=== PATIENT | male | born 1950 | race Caucasian/White ===

== ENCOUNTER 2020-06-10 08:16 | Outpatient (CLI) | payer MEDICARE, SELFPAY | END 2020-06-10 08:17 | disposition home or self-care (01) | PROVIDERS: PCP Internal Medicine | DX: Z23 Encounter for immunization (principal) | CPT/HCPCS: 0001A; 91300 ==

== ENCOUNTER 2020-07-01 08:15 | Outpatient (CLI) | payer MEDICARE, SELFPAY | END 2020-07-01 08:16 | disposition home or self-care (01) | LOC: ANHCOVIDVC 08:15 | PROVIDERS: PCP Internal Medicine | DX: Z23 Encounter for immunization (principal) | CPT/HCPCS: 0002A; 91300 ==

== ENCOUNTER 2022-04-26 17:40 | Emergency (ER) | payer MEDICARE, SELFPAY ==
--- NOTE | 2022-04-26 17:53 | ED.URI ---
HPI - URI/Sore Throat General Chief Complaint: Upper Respiratory Infection Stated Complaint: Sinus Time Seen by Provider: 04/26/22 17:53 Source: patient Mode of arrival: ambulatory Limitations: no limitations History of Present Illness HPI Narrative: 72-year-old male presents with complaint of sinus congestion, sinus pressure, headaches, fatigue, coughing, sore throat for 1 week. Afebrile. Reports yesterday everything really hit me like a train . States that sinus congestion was terrible. His neighbor went and got him a sinus rinse that helped him some. He denies nausea vomiting diarrhea. Is taking Claritin D and Mucinex with little relief. All systems reviewed and negative except as noted above. Related Data Home Medications Medication Instructions Recorded Confirmed Claritin 04/26/22 Allergies Allergy/AdvReac Type Severity Reaction Status Date / Time chocolate flavor Allergy Unknown other Verified 09/30/21 10:47 corn Allergy Unknown other Verified 09/30/21 10:47 grass pollen Allergy Unknown other Verified 09/30/21 10:47 mold Allergy Unknown Other Verified 09/30/21 10:47 tree and shrub pollen Allergy Unknown other Verified 09/30/21 10:47 Review of Systems Review of Systems: CONSTITUTIONAL: Denies fever, chills, or sweats. EYES: Denies visual changes, redness, or discharge. ENT: Reports rhinorrhea, congestion, sinus pressure, sore throat, or otalgia. CARDIOVASCULAR: Denies chest pain, palpitations, or edema. RESPIRATORY: Reports cough. Denies dyspnea. GASTROINTESTINAL: Denies abdominal pain, nausea, vomiting, or diarrhea. GENITOURINARY: Denies dysuria or hematuria. SKIN: Denies rash or itching. MUSCULOSKELETAL: Denies back pain, joint pain, or myalgia. NEUROLOGIC: Denies headache, numbness, or weakness. PSYCHIATRIC: Denies anxiety or depression. All other systems reviewed are negative, except as documented in HPI. [facility] Past Medical History Medical History (Updated 04/26/22 @ 18:00 by Charmaine Aranda NP) Cancer Hx of chronic arthritis Prostate disease Surgical History Surgical History History of appendectomy History of removal of cyst Hx of malignant melanoma of skin Family History Family History Father Diabetes mellitus Prostatic disease Mother Dementia Sibling Diabetes mellitus Social History Social History Smoking status: Never smoker Comments At time of signature, agree with nursing past medical, surgical, social and family history. There is no relevant family history pertinent to the presenting complaint. Exam Narrative: GENERAL: This is a well-nourished, well-developed patient, in no apparent distress. HEAD: normocephalic, atraumatic. EYES: PERRL. Sclera clear/white. Vision is grossly intact. EARS: External ears normal, auditory canals clear and without drainage, fluid bilateral TMs without perforation or erythema. NOSE: External nose normal with Yellow nasal drainage, moderate congestion, frontal and maxillary sinus tenderness bilaterally. THROAT: Mucous membranes moist, Erythema with postnasal drainage. NECK: Neck supple, non-tender without lymphadenopathy, masses or thyromegaly. CARDIOVASCULAR: Regular rate and rhythm without murmurs, gallops, or rubs. RESPIRATORY: Clear to auscultation. Breath sounds equal bilaterally. No wheezes, rales, or rhonchi. SKIN: warm, Dry, intact with no suspicious lesions or rash, good texture and turgor. NEURO: awake, alert, and oriented to person, place and time. There were no obvious focal neurologic abnormalities. EXTREMITIES: No joint tenderness, effusion, or edema noted. Course Course Level of Care: Express Care Visit Vital Signs Vital signs: Vital Signs Temperature 36.6 C 04/26/22 17:59 Pulse Rate 89 04/26/22 17:
[2022-04-26 17:59] VITALS: BP 130/79; PULSE 89; RESP 20; TEMP 36.6; O2SAT 100
== END 2022-04-26 18:22 | disposition home or self-care (01) ==
PROVIDERS: Emergency Provider Nurse Practitioner Family; PCP Physician Assistant
DX: J01.90 Acute sinusitis, unspecified (principal); Z85.820 Personal history of malignant melanoma of skin; M19.90 Unspecified osteoarthritis, unspecified site
CPT/HCPCS: 99213; G0463

== ENCOUNTER 2022-10-31 15:50 | Emergency (ER) | payer MEDICARE, SELFPAY ==
[2022-10-31 16:05] VITALS: BP 135/88; PULSE 96; RESP 16; TEMP 36.5; O2SAT 99
--- NOTE | 2022-10-31 16:59 | ED.LOWEXIN ---
HPI - Extremity Injury (Lower) General Chief Complaint: Extremity Injury, Lower Stated Complaint: right big toe irritation Source: patient Mode of arrival: ambulatory Limitations: no limitations History of Present Illness HPI Narrative: 72-year-old male presented for complaint of right great toe pain and swelling around the nail for about 2 days. States yesterday the site became more painful and then drained pus. Since then he reports it is improving. Related Data Home Medications Medication Instructions Recorded Confirmed loratadine 10 mg tablet (Allergy 10 mg PO DAILY 04/27/22 10/06/22 Relief (loratadine)) [id number] 3.5 drp 10/31/22 10/31/22 mg/mL-10,000 unit/mL-0.1% eye drops Allergies Allergy/AdvReac Type Severity Reaction Status Date / Time chocolate flavor Allergy Unknown other Verified 10/31/22 15:55 corn Allergy Unknown other Verified 10/31/22 15:55 grass pollen Allergy Unknown other Verified 10/31/22 15:55 mold Allergy Unknown Other Verified 10/31/22 15:55 tree and shrub pollen Allergy Unknown other Verified 10/31/22 15:55 Review of Systems Review of Systems: CONSTITUTIONAL: Denies body aches, fever, chills, or sweats. EYES: Denies visual changes, redness, or discharge. ENT: Denies rhinorrhea, congestion CARDIOVASCULAR: Denies chest pain, palpitations, or edema. RESPIRATORY: Denies cough or dyspnea. GASTROINTESTINAL: Denies abdominal pain, nausea, vomiting, or diarrhea. SKIN: Reports right great toe redness MUSCULOSKELETAL: Denies back pain, joint pain, or myalgia. NEUROLOGIC: Denies headache, numbness, tingling, or weakness. [facility] Past Medical History Medical History Cancer Hx of chronic arthritis Prostate disease Surgical History Surgical History History of appendectomy History of removal of cyst Hx of malignant melanoma of skin Family History Family History Father Diabetes mellitus Prostatic disease Mother Dementia Sibling Diabetes mellitus Social History Social History Smoking status: Never smoker Alcohol intake: unknown Substance use: unknown Lack of Transportation: No Lack of Food: Never True Current Housing: I Have Housing Concerned About Future Housing: No Difficulty Paying Gas/Electric Bills: No Difficulty Paying for Meds: No Currently Unemployed: No Education: Bachelor's Degree Difficulty w/ Childcare or Family Care: No Comments At time of signature, I have reviewed and agree with nursing past medical, surgical, social and family history unless otherwise noted. Please see nursing chart for further information. There is no relevant family history pertinent to the presenting complaint Exam Narrative: GENERAL: Well-appearing HEAD: Normocephalic, atraumatic. EYES: conjunctivae clear, and EOMI. ENT: Mucous membranes moist. Oropharynx without edema, erythema or lesions. NECK: Supple. No lymphadenopathy CHEST: Clear to auscultation. HEART: Regular rate and rhythm. SKIN: Warm, dry. Right great toe paronychia to medial aspect of the nail bed base, red, mild tenderness, no active drainage NEURO: Alert and oriented x3. Course Course Emergency Course: Patient is aware of diagnosis, understands and agrees to treatment plan. Anticipatory guidance given. Patient agrees to follow-up as directed and is aware of reasons to seek care at the emergency department. Portions of this record may have been created with voice recognition software Level of Care: Express Care Visit Vital Signs Vital signs: Vital Signs Temperature 97.7 F 10/31/22 16:05 Pulse Rate 96 10/31/22 16:05 Respiratory Rate 16 10/31/22 16:05 Blood Pressure 135/88 10/31/22 16:05 Pul
== END 2022-10-31 17:24 | disposition home or self-care (01) ==
PROVIDERS: Emergency Provider Nurse Practitioner Family; PCP Physician Assistant
DX: L03.031 Cellulitis of right toe (principal); M19.91 Primary osteoarthritis, unspecified site; Z85.820 Personal history of malignant melanoma of skin; Z90.79 Acquired absence of other genital organ(s)
CPT/HCPCS: 99213; G0463

== ENCOUNTER 2022-12-10 11:56 | Emergency (ER) | payer MEDICARE, SELFPAY ==
[2022-12-10 12:07] VITALS: BP 107/92; PULSE 82; RESP 16; TEMP 36.7; O2SAT 100
--- NOTE | 2022-12-10 12:32 | ED.EXTPRO ---
HPI - Extremity Problem General Chief complaint: Extremity Problem,Nontraumatic Stated complaint: Right Big Toe Pain Time Seen by Provider: 12/10/22 12:32 Source: patient, RN notes reviewed and old records reviewed Mode of arrival: ambulatory Limitations: no limitations History of Present Illness HPI Narrative: 72 year old male presents to express care with complaints of redness, pain and swelling to his right toe at base of his nail for past 2 days. Patient reports that he was seen for similar symptoms and placed on antibiotic and it resolved in October. Patient states that he wonders if his yard shoes are aggravating this problem since he rotates his worn out tennis shoes to work in yard. Patient reports that he has been soaking his right great toe for the past 2 dys has not noted any drainage. MD Complaint: other (redness pain and swelling right great toe) Onset (ago): day(s) (2) Location: right and toe (great toe) Severity scale (1-10): 3 Quality: aching Related Data Allergies Allergy/AdvReac Type Severity Reaction Status Date / Time chocolate flavor Allergy Unknown other Verified 12/10/22 11:58 corn Allergy Unknown other Verified 12/10/22 11:58 grass pollen Allergy Unknown other Verified 12/10/22 11:58 mold Allergy Unknown Other Verified 12/10/22 11:58 tree and shrub pollen Allergy Unknown other Verified 12/10/22 11:58 Review of Systems Review of Systems: CONSTITUTIONAL: Denies fever, chills, or sweats. EYES: Denies visual changes, redness, or discharge. ENT: Denies rhinorrhea, congestion, sore throat, or otalgia. CARDIOVASCULAR: Denies chest pain, palpitations, or edema. RESPIRATORY: Denies cough or dyspnea. GASTROINTESTINAL: Denies abdominal pain, nausea, vomiting, or diarrhea. GENITOURINARY: Denies dysuria or hematuria. SKIN: red inflamed swollen tissue to base of right great toe and medial area no drainage or fluctuant tissue MUSCULOSKELETAL: Denies back pain, pain to right great toe, or myalgia. NEUROLOGIC: Denies headache, numbness, or weakness. PSYCHIATRIC: Denies anxiety or depression. All systems reviewed & are unremarkable except as noted in HPI and below [facility] Past Medical History Medical History (Updated 12/11/22 @ 00:00 by Background Daemon) Cancer Hx of chronic arthritis Prostate disease Surgical History Surgical History History of appendectomy History of removal of cyst Hx of malignant melanoma of skin Family History Family History Father Diabetes mellitus Prostatic disease Mother Dementia Sibling Diabetes mellitus Social History Social History Smoking status: Never smoker Alcohol intake: unknown Substance use: unknown Lack of Transportation: No Lack of Food: Never True Current Housing: I Have Housing Concerned About Future Housing: No Difficulty Paying Gas/Electric Bills: No Difficulty Paying for Meds: No Currently Unemployed: No Education: Bachelor's Degree Difficulty w/ Childcare or Family Care: No Comments At time of signature, agree with nursing past medical, surgical, social and family history. There is no relevant family history pertinent to the presenting complaint Exam Narrative: GENERAL: Well-appearing, well-nourished, and in no acute distress. HEAD: Normocephalic, atraumatic. EYES: PERRLA and EOMI. ENT: Nares clear, no rhinorrhea or epistaxis. Mucous membranes moist.TM's normal with throat pink with no lesion or swelling NECK: Supple.no lymphadenopathy CHEST: Clear to auscultation. No respiratory distress.SAO2 100% on room air HEART: Regular rate and rhythm. No murmur heard. Normal peripheral pulses. ABDOMEN: Soft, nontender, nondistended, normal active bowel sounds. EXTREMITIES: Normal range of motion.Redness with swelling and discomfort to right great toe na
== END 2022-12-10 12:57 | disposition home or self-care (01) ==
PROVIDERS: Emergency Provider Registered Nurse; PCP Internal Medicine
DX: L03.031 Cellulitis of right toe (principal); M19.91 Primary osteoarthritis, unspecified site; Z90.79 Acquired absence of other genital organ(s); Z85.820 Personal history of malignant melanoma of skin
CPT/HCPCS: 99213; G0463

== ENCOUNTER 2023-01-25 08:00 | Outpatient (CLI) | payer MEDICARE, SELFPAY ==
--- NOTE | ~2023-01-25 | US_ITS ---
EXAMINATION: US art doppler w press LE BI DATE: 01/25/2023 09:25 INDICATION: Bilateral lower limb peripheral arterial occlusive disease. TECHNIQUE: Segmental pressures and plethysmographic and Doppler waveforms of the brachial and lower e xtremity arteries were obtained. COMPARISON: None. FINDINGS: Right and left brachial artery pressures of 122 mm Hg and 130 mm Hg, respectively, are concordant (no rmal difference <= 30 mmHg). The right and left high-thigh pressure indices are 1.14 and 1.25, respec tively (normal > 1.2). The right ankle-brachial index (SEGUNDO) is 1.07 (normal >= 0.9-1). The right great toe-brachial index (T BI) is 0.18 (normal >= 0.6-0.8). The right lower extremity segmental pressure gradients are increased between the right dorsalis pedis artery with respect to the right posterior tibial and fhkdh-sws-hoe e popliteal arteries as well as the contralateral left dorsalis pedis artery (normal gradients <= 20- 30 mmHg between adjacent levels on the same leg or the same levels on the two legs). Arterial wavefor ms are biphasic with brisk systolic upstrokes throughout the arteries of the right lower limb. The left SEGUNDO is 1.25. The left TBI is 0.37. The left lower extremity segmental pressure gradients are normal. Arterial waveforms are biphasic with brisk systolic upstrokes throughout the arteries of the left lower limb. IMPRESSION: 1. Arterial occlusive disease with normal bilateral ABIs but moderately decreased left and severely d ecreased right TBI's. Reviewed, dictated and finalized at location A. IMPRESSION: 1. Arterial occlusive disease with normal bilateral ABIs but moderately decreas ed left and severely decreased right TBI's.
== END 2023-01-25 08:01 | disposition home or self-care (01) ==
LOC: ANHIMG 08:03
PROVIDERS: PCP Internal Medicine; Visit Provider Podiatrist Foot & Ankle Surgery
DX: I73.9 Peripheral vascular disease, unspecified (principal)
CPT/HCPCS: 93923

== ENCOUNTER 2023-02-17 14:36 | Outpatient (CLI) | payer MEDICARE, SELFPAY ==
--- NOTE | ~2023-02-17 | US_ITS ---
EXAMINATION: US carotid duplex BI DATE: 02/17/2023 15:47 INDICATION: Right carotid bruit TECHNIQUE: Grayscale, color Doppler, and pulsed Doppler images of the cervical carotid arteries were obtained. The degree of vessel stenosis is placed in one of the following categories: normal, <50%, 5 0-69%, >=70% but less than near-occlusion, near-occlusion, or total occlusion. Note that percent sten osis relative to normal distal artery lumen diameter is indirectly measured from velocity measurement s as described by Prudencio, et al. Radiology 2003; 229:340-346. COMPARISON: None. FINDINGS: RIGHT: The right common carotid artery (CCA) peak systolic velocity (PSV) is 106 cm/s. The right internal ca rotid artery (ICA) PSV is 78 cm/s. The right ICA end-diastolic velocity (EDV) is 23 cm/s. The right I CA/CCA PSV ratio is 0.7. Grayscale and color Doppler images yield an estimate of <50% diameter reduct ion from plaque in the ICA. The external carotid artery (ECA) PSV is 137 cm/s. There is antegrade marilyn w in the right vertebral artery. LEFT: The left CCA PSV is 99 cm/s. The left ICA PSV is 92 cm/s. The left ICA EDV is 19 cm/s. The left ICA/C CA PSV ratio is 0.9. Grayscale and color Doppler images yield an estimate of <50% diameter reduction from plaque in the ICA. The ECA PSV is 86 cm/s. There is antegrade flow in the left vertebral artery. IMPRESSION: 1. <50% stenosis in the right internal carotid artery. 2. <50% stenosis in the left internal carotid artery. Reviewed, dictated and finalized at location A. 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
== END 2023-02-17 14:37 | disposition home or self-care (01) ==
PROVIDERS: PCP Internal Medicine
DX: I65.23 Occlusion and stenosis of bilateral carotid arteries (principal)
CPT/HCPCS: 93880

== ENCOUNTER 2023-02-23 15:34 | Outpatient (CLI) | payer MEDICARE, SELFPAY ==
--- NOTE | 2023-02-23 | ECHO_ITS ---
Patient Info Name: Jaxson Quach Age: 72 years : 1950 Gender: Male Ht: 72 in Wt: 160 lbs BSA: 1.92 m2 HR: 68 bpm BP: 141 / 83 mmHg Heart Rhythm: Sinus Rhythm Technical Quality: Good Exam Date: 02/23/2023 4:01 PM Exam Location: Echo Lab Patient Status: Outpatient Admit Date: 02/23/2023 Staff Ordering Physician: ORLANDO TOLLIVER MD Engineering Agent: Hui Dean RDCS Attending Provider: ORLANDO TOLLIVER MD Referring Physician: SHAREE ALEJO; Exam Type: CA echo doppler color flow Study Info Indications - PAD Complete two-dimensional, color flow and Doppler transthoracic echocardiogram is performed. Summary 1. Complete two-dimensional, color flow and Doppler transthoracic echocardiogram is performed. 2. Normal left ventricular size and thickness with good systolic function of all segments. Estimated ejection fraction was 60-65%. Normal diastolic function. 3. No significant valve disease. 4. Normal estimated pulmonary pressure. 5. Normal sinus rhythm. Left Ventricle Left ventricular chamber dimension is normal. Left ventricular systolic function is normal, estimated at Empty. There is no increased left ventricular wall thickness. Left ventricular septal wall motion is normal. The left ventricular diastolic function is normal. Right Ventricle Right ventricular chamber dimension is normal. Right ventricular systolic function is normal. Left Atria Left atrial chamber dimension is normal. Right Atria Right atrial chamber dimension is normal. Aortic Valve The aortic valve is trileaflet. There is no aortic valve sclerosis. There is no aortic valve stenosis. There is no aortic valve regurgitation. Pulmonic Valve The pulmonic valve is normal. There is no pulmonic valve stenosis. There is trace pulmonic regurgitation. Mitral Valve The mitral valve has normal leaflets. There is no mitral valve stenosis. There is trace mitral valve regurgitation. Tricuspid Valve The tricuspid valve leaflets are normal. There is no significant tricuspid valve stenosis. There is trace tricuspid valve regurgitation. No pulmonary hypertension, estimated pulmonary arterial systolic pressure is 22 mmHg. Pericardium/Pleural The pericardium appears normal. There is no pericardial effusion. Inferior Vena Cava Normal inferior vena cava with >50% collapse upon inspiration consistent with Empty right atrial pressure, 10 mmHg. Aorta The aortic root size at the sinus of Valsalva is normal. The prox ascending aorta size is normal. Left Ventricular Outflow Tract Name Value Normal LVOT 2D LVOT Diameter 2.1 cm LVOT Doppler LVOT Peak Gradient 3 mmHg LVOT Mean Gradient 2 mmHg LVOT VTI 22 cm LVOT VTI/AV VTI Ratio 0.8 LVOT Stroke Volume 76 ml LVOT CO 5.4 l/min LVOT CI 2.8 l/min/m2 Pulmonic Valve Name Value Normal
== END 2023-02-23 15:35 | disposition home or self-care (01) ==
LOC: ANHCARD 15:35
PROVIDERS: PCP Internal Medicine
DX: I73.9 Peripheral vascular disease, unspecified (principal); I25.10 Atherosclerotic heart disease of native coronary artery without angina pectoris
CPT/HCPCS: 93306

== ENCOUNTER 2023-03-01 06:27 | Emergency (ER) | payer MEDICARE, SELFPAY ==
[2023-03-01 06:30] VITALS: BP 156/89; PULSE 97; RESP 20; TEMP 36.9; O2SAT 99
[2023-03-01 06:38] LABS: Glucose Point of Care 121 mg/dl (65-105)
--- NOTE | 2023-03-01 07:08 | PC.NURSE ---
Report given to RAJAN Perkins at this time.
--- NOTE | 2023-03-01 07:24 | ED.GENADULT ---
HPI - General Adult General Chief complaint: Psychiatric Symptoms Stated complaint: im scared Time Seen by Provider: 03/01/23 06:54 History of Present Illness HPI narrative: Before old male presenting to the ED after having some night terrors. Patient was restarted on metformin approximately 2 weeks ago. Patient states he had a normal day yesterday at work on the car. Patient did have some hand pain and did take some ibuprofen before bed. Patient states at approximately 5:30 a.m. this morning he woke up after having a horrible dreams that involved sex and dad negative people. Patient reports of the JUANY so bad that upon waking and he had the thought that he wanted to kill himself to prevent that drained from happening again. Patient gives the example of shooting himself. Patient states he does not own any firearms. Upon arrival to the emergency department patient states he no longer has thoughts of hurting himself but is still affected by the dream. Related Data Allergies Allergy/AdvReac Type Severity Reaction Status Date / Time chocolate flavor Allergy Unknown other Verified 03/01/23 06:46 corn Allergy Unknown other Verified 03/01/23 06:46 grass pollen Allergy Unknown other Verified 03/01/23 06:46 mold Allergy Unknown Other Verified 03/01/23 06:46 tree and shrub pollen Allergy Unknown other Verified 03/01/23 06:46 Review of Systems Review of Systems: All systems reviewed & are unremarkable except as noted in HPI and below PMFSH Past Medical History Medical History (Updated 03/01/23 @ 10:24 by Chad Alicea MD) Cancer Hx of chronic arthritis Prostate disease Surgical History Surgical History History of appendectomy History of removal of cyst Hx of malignant melanoma of skin Family History Family History Father Diabetes mellitus Prostatic disease Mother Dementia Sibling Diabetes mellitus Social History Social History Smoking status: Never smoker Alcohol intake: unknown Substance use: unknown Substance use type: does not use Lack of Transportation: No Lack of Food: Never True Current Housing: I Have Housing Concerned About Future Housing: No Difficulty Paying Gas/Electric Bills: No Difficulty Paying for Meds: No Currently Unemployed: No Education: Bachelor's Degree Difficulty w/ Childcare or Family Care: No Exam Narrative: APPEARANCE: Well appearing, no pain, no distress, well-nourished. HEAD: normocephalic, atraumatic. EYES: PERRLA/EOMI, conjunctivae clear. NOSE: Normal no drainage EARS:TMS clear with good light reflex. THROAT: Pharynx clear, no exudate. NECK: Supple. No adenopathy, no masses. RESPIRATORY: Airway patent, respirations nonlabored. Clear to auscultation bilaterally, no rales, rhonchi, wheezing. CARDIOVASCULAR: Regular rate and rhythm without murmurs rubs or gallops. ABDOMINAL: Soft, nontender, nondistended, normal bowel sounds MUSCULOSKELETAL: Moves all extremities. Strength/ROM intact, No edema, No calf tenderness. NEURO: Alert. Cranial nerves II through XII intact. Good gait. Good coordination SKIN: Warm, dry. Normal Color PSYCHIATRIC: tearful affect Course Course Emergency Course: patient was evaluated by the crisis counselor and patient is safe for discharge to home with close outpatient follow-up. Patient's symptoms may have been due to a benign tear which may have been an adverse reaction to his metformin. Patient was updated on the results of his workup. All questions concerns were addressed and patient was well-appearing at time of discharge. Reevaluation(s) Reevaluation #1: patient is medically cleared to be evaluated by the crisis counselor. Patient is medically cleared for transport and patient's psychiatric treatment as needed. Vital Signs
[2023-03-01 07:27] LABS: Basophils Percent Auto 0.7 % (0.2-1.2); Eosinophils Absolute Auto 0.2 K/mm3 (0-0.3); Eosinophils Percent Auto 3.7 % (0-4.4); Hematocrit 42.3 % (42.0-52.0); Hemoglobin 14.1 g/dL (14.0-18.0); Immature Granulocyte Absolute 0.03 K/mm3 (0.00-0.031); Immature Granulocyte Percent A 0.7 % (0-0.5); Lymphocytes Absolute Auto 1.18 K/mm3 (0.9-3.2); Lymphocytes Percent Auto 27.6 % (18.3-44.2); Mean Corpuscular HGB Conc 33.3 g/dl (32-36); Mean Corpuscular Hemoglobin 31.5 pg (26-34); Mean Corpuscular Volume 94.6 fl (80-100); Mean Platelet Volume 8.4 fl (7.4-10.4); Monocytes Absolute Auto 0.6 K/mm3 (0.1-0.6); Monocytes Percent Auto 13.8 % (2.6-8.5); Neutrophils Absolute Auto 2.3 K/mm3 (1.3-6.7); Neutrophils Percent Auto 53.5 % (45.5-73.1); Platelet Count Result 215 k/mm3 (150-375); Red Blood Count 4.47 M/mm3 (4.6-6.20); Red Cell Distribution Width 12.2 % (11.5-14.5); White Blood Count 4.3 K/mm3 (4.5-10.0)
[2023-03-01 07:28] LABS: Appearance Urine Clear (Clear); Bilirubin Urine Negative (Negative); Blood Urine Negative (Negative); Color Urine Yellow (Yellow); Glucose Urine UA Negative (Negative); Ketones Urine Negative (Negative); Leukocyte Esterase Ur Negative LEU/UL (Negative); Nitrate Urine Negative (Negative); Protein Urine Negative (Negative); Specific Grav Ur 1.014 (1.001-1.035); Urobilinogen Urine 0.2 mg/dL (<2.0)
[2023-03-01 07:44] LABS: Amphetamine Screen Urine Negative (Negative); Barbiturate Screen Urine Negative (Negative); Benzodiazepines Screen Urine Negative (Negative); Cannabinoid Screen Urine Negative (Negative); Cocaine Screen Urine Negative (Negative); Methadone Screen Urine Negative (Negative); Opiate Screen Urine Negative (Negative); Phencyclidine Screen Urine Negative (Negative)
[2023-03-01 07:45] LABS: Potassium 4.2 mmol/L (3.4-5.0)
[2023-03-01 07:46] LABS: Alanine Aminotransferase 27 U/L (6-50); Albumin Level 4.3 g/dL (3.5-5.1); Alkaline Phosphatase 72 U/L (38-126); Anion Gap 8 mmol/L (8-16); Aspartate Amino Transferase 29 U/L (17-59); Bilirubin,Total 0.6 mg/dL (0.2-1.3); Blood Urea Nitrogen 13 mg/dL (9-20); Calcium 9.7 mg/dL (8.4-10.2); Carbon Dioxide 26 mmol/L (22-30); Chloride 107 mmol/L (98-107); Estimated CRCL calculation 65 ml/min; Estimated Glomerular Filt Rate > 60; Glucose 133 mg/dL (65-110); Sodium 141 mmol/L (137-145)
[2023-03-01 07:48] LABS: Acetaminophen < 10 ug/mL (10-30); Ethanol < 10 mg/dL (<10); Salicylate < 1.0 mg/dL (2-20)
[2023-03-01 08:18] LABS: Add Urine Microscopic? NO
[2023-03-01 08:49] VITALS: BP 141/80; PULSE 80; RESP 16; TEMP 36.4; O2SAT 100
--- NOTE | 2023-03-01 09:08 | PC.NURSE ---
Breakfast tray ordered. Verified w/pt he was allergic to corn and not corn by products.
[2023-03-01 10:46] VITALS: RESP 16
== END 2023-03-01 10:47 | disposition home or self-care (01) ==
PROVIDERS: Emergency Provider Emergency Medicine; PCP Internal Medicine
DX: F51.5 Nightmare disorder (principal); N42.9 Disorder of prostate, unspecified; M19.90 Unspecified osteoarthritis, unspecified site; Z85.820 Personal history of malignant melanoma of skin; Z79.84 Long term (current) use of oral hypoglycemic drugs
CPT/HCPCS: 36415; 80053; 80307; 81003; 82948; 84443; 85025; 99284

== ENCOUNTER 2023-10-23 14:27 | Outpatient (CLI) | payer MEDICARE, SELFPAY ==
--- NOTE | ~2023-10-23 | XR_ITS ---
EXAM: XR hand RT min 3V DATE: 10/23/2023 14:50 HISTORY: M18.11 - Unilateral primary osteoarthritis of first carpo... . COMPARISON: None available. FINDINGS: Normal mineralization. No fracture or dislocation. No lytic or blastic lesion. Scattered d egenerative changes typical of osteoarthritis, moderate at the first CMC joint and second and third D IP joints, mild at multiple interphalangeal and MCP joints and the triscaphe joint. Degenerative cyst in the lunate. No erosion or periosteal change. Vascular calcification. IMPRESSION: Moderate polyarticular osteoarthritis of the hand. Reviewed, dictated and finalized at location K.
== END 2023-10-23 14:28 | disposition home or self-care (01) ==
PROVIDERS: PCP Internal Medicine; Visit Provider Physician Assistant Surgical
DX: M18.11 Unilateral primary osteoarthritis of first carpometacarpal joint, right hand (principal); M19.041 Primary osteoarthritis, right hand
CPT/HCPCS: 73130

== ENCOUNTER 2023-12-28 11:00 | Outpatient (RCR) | payer MEDICARE, SELFPAY ==
--- NOTE | 2023-11-17 10:42 | OTOPEVAL1 ---
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 He reports pain after using his weed eater and mower the other day. Pain with using a cylindrical grasp to spanish moss picker a glass of water. Reported Pain Level Pain Score 3: Self Report Assessment OT Clinical Summary Patient referred to OT with dx of right thumb CMC OA. He presents with pain that limits functional use during ADLs. A hand based thumb spica orthosis was fabricated today. Issued ROM HEP. Continued follow up indicated for use of modalities, HEP progression, manual therapy, and therapeutic exercises and activities to facilitate reduced pain, improved strength, and improved functional use of the right hand. Plan of Care Interventions Therapeutic Exercise,Manual Therapy,Check Out for Orthotic/Pr,Ultrasound,Paraffin OT Services Indicated Yes Treatment Frequency and 1x/week for 5 visits Duration These treatments will address the objective and functional deficits as defined above. The patient will be advanced safely and appropriately in order for the patient to progress towards his/her prior level of function. Additional exercises will be introduced and as well as a comprehensive home exercise program upon discharge, if needed, ?to ensure carryover of functional gains achieved in the clinic. This treatment plan has been reviewed and agreement upon by the patient.
--- NOTE | 2023-11-17 10:42 | OPREHPOC ---
Outpatient Therapy Plan of Care This is a Multidisciplinary Plan of Care that may contain components documented by all disciplines (PT, OT, and ST.) OT Problem 1 OT Problem #1 Knowledge Deficit OT Goal 1 Goal 1. Patient to be independent with instructed materials. Target Visit 5 OT Problem 2 OT Problem #2 Pain OT Goal 1 Goal 1. Patient to report no pain in the right thumb at rest. 2. Patient to report pain at worst to 5/10 or less during ADLs. Target Visit 5 OT Problem 3 OT Problem #3 Impaired Strength OT Goal 1 Goal 1. Patient to be indep with CMC stabilization HEP (rubber band HEP) x20 reps 2. 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 with yellow putty without pain. Target Visit 5
--- NOTE | 2023-12-28 11:39 | OTOPDC ---
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 He has been wearing his brace and reports this has been helpful also. He reports he was working on his deck yesterday, using tools and using his hands a lot. He reports today he is feeling good, very low pain. He states that prior to therapy he would be experiencing high amounts of pain for a few days after a busy day like yesterday. He continues to have pain with a cylindrical grasp, like picking up a glass of water, but notes he's been trying to use his left hand more. Assessment OT Clinical Summary Patient referred to OT with dx of right thumb CMC OA. He has participated in 4 OT sessions and has made progress with reduced pain and improved functional mechanics during ADLs. He reports continuing to experience pain, however it doesn't last as long. He reports wearing the thumb spica orthotic PRN and this is helpful and supportive. He reports he is ready to be discharged as he has all the materials to continue on his own. D/C today with patient independent with HEP. Plan of Care OT Services Indicated No
== END 2023-12-28 13:25 | disposition home or self-care (01) ==
LOC: ANHOT 11:00
PROVIDERS: PCP Internal Medicine; Visit Provider Physician Assistant Surgical
DX: M18.11 Unilateral primary osteoarthritis of first carpometacarpal joint, right hand (principal)
CPT/HCPCS: 97018; 97110; 97165; L3913

== ENCOUNTER 2024-12-14 13:24 | Emergency (ER) | payer MEDICARE, SELFPAY ==
[2024-12-14 13:31] VITALS: BP 128/81; PULSE 96; RESP 16; TEMP 36.6; O2SAT 99
--- NOTE | 2024-12-14 13:34 | ED_ITS ---
HPI - Eye Problem General Chief complaint: Eye Problems Stated complaint: right eye irritation patient presents to [facility] with complaints yesterday noting some redness and significant mucus coming from right eye, this morning symptoms are worse with some matting upon waking. Patient noted that his normal seasonal allergies have kicked up starting about 3 days ago but only on the right side, noted taking Claritin D for the symptoms. Noted he does not usually have any trouble with eye involvement or eye drainage. Patient does not wear contact lenses. Denies being outside in having anything blown into his eye, denies sensitivity to light. Denies fever, chills, body aches, loss of vision, blurry vision, headache, dizziness. Related Data Home Medications ?Medication ?Instructions ?Recorded ?Confirmed ?Last Taken ?Type triamcinolone acetonide 0.1 % 1 applic topical BID 10/14/24 Unknown History topical cream Allergies Allergy/AdvReac Type Severity Reaction Status Date / Time chocolate flavor Allergy Unknown other Verified 12/14/24 13:26 corn Allergy Unknown other Verified 12/14/24 13:26 grass pollen Allergy Unknown other Verified 12/14/24 13:26 mold Allergy Unknown Other Verified 12/14/24 13:26 tree and shrub pollen Allergy Unknown other Verified 12/14/24 13:26 Review of Systems Constitutional: Constitutional: Reports as per HPI, Denies chills, Denies fatigue, Denies fever(s) and Denies weakness Eyes: Eyes: Reports as per HPI, Denies change in vision and Denies photophobia Comments: Redness, irritation, drainage right eye ENT: Reports as per HPI, Denies vertigo, Denies dizziness, Reports nasal congestion and Denies sore throat Comments: sinus pain right forehead and cheek Cardiovascular: Cardiovascular: Reports as per HPI Respiratory: Respiratory: Reports as per HPI, Reports chest congestion and Reports cough Gastrointestinal: Gastrointestinal: Reports no additional gastrointestinal complaints Genitourinary: Genitourinary: Reports no additional male genitourinary complaints Musculoskeletal: Musculoskeletal: Reports no additional musculoskeletal complaints Neurologic: Reports as per HPI, Denies vertigo, Denies dizziness and Denies headache(s) Psychiatric: Psychiatric: Reports no additional psychiatric complaints Endocrine: Endocrine: Reports no additional endocrine complaints Hematologic/Lymphatic: Hematologic/Lymphatic: Reports no additional hematologic/lymphatic complaints Allergic/Immunologic: Allergic/Immunologic: Reports as per HPI, Denies lip swelling, Denies throat swelling, Denies tongue swelling and Denies wheezing Comments: seasonal allergies [facility] Past Medical History Medical History (Updated 12/14/24 @ 13:44 by JAKUB BotelloC) Prostate disease Cancer Hx of chronic arthritis Surgical History Surgical History History of appendectomy History of removal of cyst Hx of malignant melanoma of skin Family History Family History Father Diabetes mellitus Prostatic disease Mother Dementia Sibling Diabetes mellitus Social History Social History Smoking status: Never smoker Alcohol intake: unknown Substance use: unknown Substance use type: does not use Do You Feel Safe in your Home?: Yes Lack of Transportation: No Lack of Food: Never True Current Housing: I Have Housing Concerned About Future Housing: No Difficulty Paying Gas/Electric Bills: No Difficulty Paying for Meds: No Currently Unemployed: No Education: Bachelor's Degree Difficulty w/ Childcare or Family Care: No Exam Const: General: healthy appearing, no acute distress and alert Nutritional Appearance: well nourished Orientation/consciousness: patient oriented x3 Limitations: no limitations HENMT: Head: normal to inspection Ears: external ears normal and TM's normal bilaterally Face/Nose/Sinus: Normal external nose present and Normal nares present Face and sinus: normal facial exam and sinus tenderness ( right only) frontal and maxillary Mouth: Yes Normal oral and palatal mucosa present Throat: posterior oropharynx normal Eyes: Conjunctivae: conjunctival abnormality ( injection an exudate noted) right Pupils: Equal, round and reactive pupils present EOM: EOMs intact bilaterally Direct Ophthalmoscopy: no photophobia Neck: Neck: no lymphadenopathy Resp: Effort & Inspection: normal respiratory effort Auscultation: clear to auscultation bilaterally Cardio: Rate: regular rate Rhythm: regular rhythm Skin: General skin exam: normal color Rashes: no rashes Wounds: no wounds Neuro: General: patient oriented x3 and moves all extremities Cranial nerves: Yes Nystagmus not present Speech: normal speech Gait exam (Neuro): Normal gait present Extrem: General: no clubbing, cyanosis or edema and no pedal edema Psych: Mental Status: mental status grossly normal Affect: normal affect Attitude: cooperative Course Course Level of Care: Express Care Visit Vital Signs Vital signs: Vital Signs Temperature 97.9 F 12/14/24 13:31 Pulse Rate 96 12/14/24 13:31 Respiratory Rate 16 12/14/24 13:31 Blood Pressure 128/81 12/14/24 13:31 Pulse Oximetry 99 12/14/24 13:31 Oxygen Delivery Room Air 12/14/24 13:31 Temperature 97.9 F 12/14/24 13:31 Pulse Rate 96 12/14/24 13:31 Respiratory Rate 16 12/14/24 13:31 Blood Pressure 128/81 12/14/24 13:31 Pulse Oximetry 99 12/14/24 13:31 Oxygen Delivery Room Air 12/14/24 13:31 MDM - Eye Problem MDM Narrative Medical decision making narrative: The patient was evaluated by myself in the express care. History is obtained from patient who is an independent historian and physical exam was performed. Available medical records were reviewed at this time. Exam findings show no acute concerns or changes; patient is non-toxic appearing and is in no distress. Patient is appropriate for outpatient treatment and follow-up. I have evaluated and discussed social determinants of health with the patient that could potentially impact subsequent diagnosis and treatment plans. Differential diagnosis and treatment plan were discussed with the patient. Patient agrees with discussion and after shared medical decision making agrees with plan of care. All questions were answered to the patient's satisfaction. Differential Diagnosis Differential diagnosis: Likely corneal abrasion, conjunctivitis, periorbital cellulitis and corneal ulcer Medical Records Attestation: I reviewed the patient's medical records. Discharge Plan Discharge Clinical Impression: Allergic rhinitis, Acute conjunctivitis of right eye Patient Disposition: Home Condition: Stable Instructions: Antibiotic Form, Conjunctivitis (ED) Additional Instructions: Your exam today shows Conjunctivitis, You have been given a prescription for eye drops. Use the eye drops as instructed. If you are not better in two (2) days, you need to follow up with an transportation technician. Do not rub the eye or put anything else in the eye, this can cause abrasions (scratches) on the eye or lead to vision loss. Also it is important not to touch the tube or tip of drops to the eye, as this can cause further infection. Wash your hands very well before instilling the medication. Handwashing can help prevent the spread of disease. Follow up with PCP in 7-10 days Return to ER for problems Contact [facility] if you need an Bobbin Doffer Patient Language: Amharic Prescriptions: New prednisone 50 mg tablet 50 mg PO DAILY Qty: 7 0RF tobramycin-dexamethasone 0.3-0.1 % drops,suspension 1 drp RIGHT EYE 6XD 7 Days Qty: 5 0RF Rx Instructions: while awake No Action triamcinolone acetonide 0.1 % cream 1 applic topical BID diclofenac sodium 1 % gel 2 g topical .q12 Qty: 100 0RF Rx Instructions: apply to single elbow, wrist or hand; for hand includes palm/fingers/back of hand every 12 hours as needed for pain fluticasone propionate 50 mcg/actuation spray,suspension 2 spray intranasal DAILY Qty: 15.8 1RF Rx Instructions: administer into each nostril pioglitazone 15 mg tablet 15 mg PO DAILY Qty: 90 2RF Claritin-D 12 Hour 5-120 mg tablet extended release 12 hr 1 tablet PO Q12H PRN (Reason: allergy symptoms) Qty: 60 1RF atorvastatin 20 mg tablet See Rx Instructions .ROUTE .COMPLEX Qty: 90 3RF Dose Instruction: Take 1 tablet by mouth once daily Rx Instructions: Take 1 tablet by mouth once daily Follow-up/Referrals: Kvng Hoff DO [Primary Care Provider, Internal Medicine] Time of Disposition: 13:45
== END 2024-12-14 13:51 | disposition home or self-care (01) ==
PROVIDERS: Emergency Provider Nurse Practitioner Family; PCP Internal Medicine
DX: J30.9 Allergic rhinitis, unspecified (principal); H10.31 Unspecified acute conjunctivitis, right eye; M19.90 Unspecified osteoarthritis, unspecified site; Z85.820 Personal history of malignant melanoma of skin
CPT/HCPCS: 99213; G0463